=== PATIENT | male | born 1955 ===

== ENCOUNTER 2018-06-18 08:15 | Inpatient (IN) | payer OTHER ==
[~2018-06-18] VITALS: Ht 167.6 cm; Wt 73.5 kg
[2018-06-24] MEDS ORDERED: JANUMET 50-5001 EACH PO (13:37)
[2018-06-24] MEDS ORDERED: NTG PO (13:38)
[2018-06-24] MEDS ORDERED: [UNRECOGNIZED DRUG - OTHER] PO (13:38)
[2018-06-26] MEDS ORDERED: CARVEDILOL3.125 MG PO (10:09)
[2018-06-26] MEDS ORDERED: NITROGLYCERIN0.4 MG PO (10:10)
[2018-06-29] MEDS ORDERED: OXYC1TAB9 PO (07:47)
[2018-06-29] MEDS ORDERED: POLY119PG PO (07:49)
[2018-06-29] MEDS ORDERED: PANTOPRAZOLE SO40 MG PO (07:49)
[2018-06-29] MEDS ORDERED: Intestinex CAP PO (07:50)
== END 2018-06-29 13:08 | disposition home or self-care (01) | DRG 330 ==
LOC: O/R 06-26 06:25 → SURH 06-26 08:15
PROVIDERS: ADMIT Surgery
PROC: 07TC4ZZ Resection of Pelvis Lymphatic, Percutaneous Endoscopic Approach (ICD-10-PCS; 2018-06-26)
PROC: 0DTG4ZZ Resection of Left Large Intestine, Percutaneous Endoscopic Approach (ICD-10-PCS; principal; 2018-06-26 13:30)
DX: C18.5 Malignant neoplasm of splenic flexure (principal); D62 Acute posthemorrhagic anemia; R59.0 Localized enlarged lymph nodes; I25.10 Atherosclerotic heart disease of native coronary artery without angina pectoris; E11.9 Type 2 diabetes mellitus without complications; I11.9 Hypertensive heart disease without heart failure